=== PATIENT | male | born 2000 | race Caucasian/White ===

== ENCOUNTER 2024-09-22 14:14 | Emergency (ER) | payer OTHER, SELFPAY ==
[2024-09-22 14:21] VITALS: BMI 26.5
[2024-09-22 14:38] LABS: % Basophils 0.3 % (0-2); % Eosinophils 1.5 % (0-6); % Monocytes 11.6 % (1.7-9.3); % Neutrophils 47.6 % (42.2-75.2); Absolute Eosinophils 0.1 10^3/uL (0-0.7); Absolute Lymphocytes 2.4 10^3/uL (1.2-3.4); Absolute Monocytes 0.7 10^3/uL (0.1-0.6); Absolute Neutrophils 2.9 10^3/uL (1.4-6.5); Hematocrit 46.7 % (39.0-52.0); Hemoglobin 16.7 g/dL (13.0-18.0); Mean Corp Hgb Conc. 35.8 g/dL (33.0-37.0); Mean Corpuscular Hgb 31.1 pg (27.0-31.0); Mean Platelet Volume 9.7 fL (7.4-10.4); Nucleated Red Blood Cells % 0 % (-); Platelet Count 210 10^3/uL (130-400); Red Blood Cell Count 5.37 10^6/uL (4.70-6.10); Red Cell Dist. Width 11.6 % (11.5-14.5); White Blood Cell Count 6.1 10^3/uL (4.8-10.8)
[2024-09-22 15:20] LABS: ALT (SGPT) 39 U/L (0-50); AST (SGOT) 28 U/L (17-59); Albumin 5.3 g/dl (3.5-5.0); Alkaline Phosphatase 39 U/L (38-126); Blood Urea Nitrogen 13 mg/dl (9-20); Calcium 9.9 mg/dl (8.4-10.2); Carbon Dioxide 25 mmol/L (22-30); Chloride 102 mmol/L (98-107); Estimated Creatinine Clearance 122 ml/min; Glucose 107 mg/dl (70-99); Potassium 4.2 mmol/L (3.5-5.1); Sodium 139 mmol/L (135-145); Total Bilirubin 0.5 mg/dl (0.2-1.3); eGFR > 60.00
[2024-09-22 17:53] VITALS: BP 168/94
--- NOTE | 2024-09-22 19:25 | ED.GENMED ---
History of Present Illness
General
Chief Complaint: Abdominal Pain
Source: patient
Exam Limitations: none
Time Seen by Provider: 09/22/24 19:15
History of Present Illness
History of Present Illness:
This is a 24 year old male that comes in with c/o abd pain. States that about 2.5 weeks ago he started with this ache pain under the testicles. States that it became sharp and started to move up. States that it went to the groin and kept moving up
into the LLQ. States that it is a sharp burning pain. States that it feels like is is pulsating. States that it has gone up to the left lower ribs. State that he also started about 1.5 weeks ago with epigastric pain. States that he has been
nauseated and had urinary burning. Denies any fever, chills, chest pain, SOB, vomiting, diarrhea, headache, dizziness.
Past History
Past History
ED Past Medical History: None; Negative Asthma, HTN, Hypercholesterolemia or NIDDM
ED Past Surgical History: Orthopedic (Pins in left hand)
Social History
Tobacco: Non-smoker
Alcohol: Occasional
Drug: Marijuana
Personal: Single
Living: with family
Review of Systems
Review of Systems
All Other Systems: ROS reviewed and negative except as documented in HPI and ROS
Constitutional: Denies fever or chills
EENT: Reports no symptoms
Respiratory: Reports no symptoms; Denies cough or trouble breathing
Cardiac: Reports no symptoms; Denies chest pain
ABD/GI: Reports abdominal pain and nausea; Denies vomiting or diarrhea
: Reports dysuria; Denies frequency or urgency
Musculoskeletal: Reports no symptoms
Skin: Reports no symptoms
Neurological: Reports no symptoms; Denies dizzy or headache
Psychiatric: Reports no symptoms
Phy Exam
General Physical Exam
General Presentation: well appearing and no apparent distress
General age: appears stated age
General Skin: warm and dry
General Habitus: normal
General Mental: alert
General Hydration: appears well hydrated
ENT Exam
ENT Exam: TM's normal, pharynx normal and neck supple
Eye Exam
Eye Exam: EOMI
Cardiovascular Exam
Cardiovascular Exam: regular rate/rhythm, no edema, no murmur and normal peripheral pulses
Pulmonary Exam
Pulmonary Exam: lungs clear, no respiratory distress, no rales, chest non tender, no crackles, no rhonchi, no wheezing and no cough
Gastrointestinal Exam
Gastrointestinal Exam: normal bowel sounds, soft, no organomegaly, no pulsatile mass, non distended and tender (Left sided tenderness with palpation)
Musculoskeletal Exam
Musculoskeletal Exam: full ROM and no edema
Skin Exam
Skin Exam: normal color, warm/dry, no rash and no petechia
Psychiatric Exam
Psychiatric Exam: normal mood/affect
Course
Orders/Labs/Results
Orders:
Orders
09/22/24 14:29
Complete Blood Count/With Diff Urgent
Comprehensive Metabolic Panel Urgent
Lipase Urgent
09/22/24 19:25
CT Abd/pel W Iv And Oral Contr Urgent
Comment:
Reason For Exam: left sided abd pain
0.9% Sodium Chloride 500 ml [Nss] 500 ml IV BOLUS
Iohexol [Omnipaque] See Protocol PO NOW STA
Ondansetron Injectable [Zofran] 4 mg IV NOW STA
09/22/24 19:31
Add On- LAB Urgent
Tests Added?: Lipase
Pantoprazole [Protonix IV] 40 mg IV NOW STA
09/22/24 19:39
Urinalysis Reflex To Culture Urgent
Date Specimen was Collected: 09/22/24
Time Specimen was Collected: 19:35
Abnormal Lab Results
09/22/24 09/22/24
14:29 19:39
MCH 31.1 H pg
(27.0-31.0)
Absolute Monos (auto) 0.7 H 10^3/uL
(0.1-0.6)
Monocytes % 11.6 H %
(1.7-9.3)
Glucose 107 H mg/dl
(70-99)
Albumin 5.3 H g/dl
(3.5-5.0)
Urine Ketones Trace A
(Negative)
09/22/24 14:29
09/22/24 14:29
glucose nonfasting. Albumin slightly elevated. Urine negative for infection
Vital Signs
Initial and Last Documented VS:
Initial Vital Signs
Temp Pulse Resp Pulse Ox
98.6 F 102 16 99
09/22/24 14:21 09/22/24 14:21 09/22/24 14:21 09/22/24 14:21
Last Documented Vital Signs
Temp Pulse Resp BP Pulse Ox
98.6 F 75 18 123/65 100
09/22/24 14:21 09/22/24 22:46 09/22/24 22:46 09/22/24 22:46 09/22/24 22:46
MDM/Problems Addressed
Differential Diagnosis Includes:
Renal calculus, Diverticulitis, Gastritis
MDM/Problems Addressed:
This is a 24 year old male that comes in with c/o left sided abd tenderness . States that this started about 2.5 weeks ago and started at the base of the testicles and came up into the groin and then the LLQ. States that the pain know goes up to the
ribs on the left side.
Will check labs, CT scan, IV fluids and medicate for nausea.
back into see patient. Explained that his CT scan is normal. Blood work is normal and his urine is negative for infection. Explained to patient that he may have pulled a groin muscle. patient can use Tylenol 1000mg every 6 hour. Patient is
prescribed Naproxen for his thumb. Explained that this will also help with any discomfort. Patient to follow up with the family doctor. Return with any concerns .
Chronic conditions affecting care:
NA
Acute Exacerbation and/or Progression of Chronic Illness:
NA
*Radiology
Radiology exam reviewed: radiology read reviewed (CT-No CT evidence for bowel obstruction, ascites or pneumoperitoneum. Mild left convex curvature of the midlumbar spine. )
*Pulse Oximetry
Patient hypoxic: no
*EKG
Interpreted by ED Provider?: NA
Rate: EKG- N/A
*Office Cashier Interpretation
Rate: Office Cashier- N/A
*Critical Care Note
Total Time (30-74mins, 75-104mins- exclusive of procedures): Not Applicable
ED Attending Note
-
Portions of this chart may have been created with voice recognition software.� Occasional wrong word or��sound alike� substitutions may have occurred due to the inherent limitations of voice recognition software.
Discharge Plan
Departure
Patient Disposition: Home (Routine Discharge)
Date of Disposition: 09/22/24
Time of Disposition: 23:24
Patient with high blood pressure during this ER visit?: No
Condition: Good
Covid-19: Not Applicable
Discharge Problem:
Left sided abdominal pain
Instructions: Abdominal Pain
Referrals:
NONE,* [Family Provider] -
Activity Restrictions/Additional Instructions:
As discussed, your blood work is normal. Your urine is negative for any infection and your CT is negative for any acute process. This may be due to a pulled groin muscle. Please use The Naproxen you have been ordered for your Thumb and you can add
Tylenol 1000mg every 6 hours for pain. You can try a heating pad or ice to the area. Follow up with the family doctor. IF YOU HAVE ANY OTHER CONCERNS PLEASE RETURN TO THE EMERGENCY ROOM.
Interventions
Interventions:
*Risk Screen - Suicide Last Done: 09/22/24 14:21
*Neglect/Abuse Screening Last Done: 09/22/24 14:21
*ED COVID-19 Vaccine History Last Done: 09/22/24 14:21
[facility]-Fajxnk-Nlmccrlges Assessment Last Done: 09/22/24 20:40
Discharge Date and Time
Print Language: MOROCCAN
[2024-09-22] MEDS: ZOFRAN 4 MG IV (19:38)
[2024-09-22] MEDS: OMNIPAQUE 50 ML PO (19:38)
[2024-09-22] MEDS: PROTONIX IV 40 MG IV (19:38)
[2024-09-22] MEDS: NSS 500 IV (19:38)
[2024-09-22 19:43] LABS: Lipase 51 U/L (23-300)
[2024-09-22 19:52] LABS: Urine Albumin Negative (Neg - Trace); Urine Bilirubin Negative (Negative); Urine Character Clear (Clear); Urine Color Yellow; Urine Glucose Negative (Negative); Urine Ketone Trace (Negative); Urine Leukocyte Negative (Negative); Urine Nitrite Negative (Negative); Urine Occult Blood Negative (Negative); Urine Specific Gravity 1.015 (<1.030); Urine Urobilinogen Negative (Neg - 1+); Urine pH 6.5 (5.0-9.0)
[2024-09-22 22:46] VITALS: BP 123/65
[2024-09-22 23:35] VITALS: BP 123/74
== END 2024-09-22 23:45 | disposition home or self-care (01) ==
LOC: EMR 14:14
PROVIDERS: Clinical Nurse Specialist Family Health; Emergency Medicine; EMERGENCY PHYSICIAN Student in an Organized Health Care Education/Training Program
DX: R10.32 Left lower quadrant pain (principal); R11.0 Nausea
CPT/HCPCS: 96374; 96375; 99284; 74177; 80053; 81003; 83690; 85025; Q9967